=== PATIENT | male | born 1980 | race Two or more races ===

== ENCOUNTER → 2022-05-17 | Outpatient (CLI) | payer MEDICARE, MEDICAID | LOC: M PLAIMG 14:45 | PROVIDERS: ATTEND Physician Assistant | DX: L03.012 Cellulitis of left finger (principal) ==

== ENCOUNTER 2023-05-05 21:16 | Emergency (ER) | payer MEDICAID, MEDICARE ==
[~2023-05-05] VITALS: Ht 177.8 cm; Wt 100.0 kg
[2023-05-05 21:16] VITALS: BP 111/75; TEMP 98.6; O2SAT 97
[2023-05-05] MEDS ORDERED: AMOXICILLIN 500 MG CAP PO ONE (23:35)
[2023-05-05] MEDS ORDERED: IBUPROFEN 600MG TAB PO ONE (23:35)
[2023-05-05] MEDS ORDERED: UNRESOLVED CLARIFICATION ENTRY XX STA (23:38)
[2023-05-05] MEDS ORDERED: IBUP-1022 PO (23:46)
[2023-05-05] MEDS ORDERED: AMOX500C PO (23:46)
== END 2023-05-05 23:49 | disposition home or self-care (01) ==
LOC: M ED 21:16
DX: K12.2 Cellulitis and abscess of mouth (principal); Z79.2 Long term (current) use of antibiotics; Z79.1 Long term (current) use of non-steroidal anti-inflammatories (NSAID)

== ENCOUNTER 2024-08-28 13:59 | Emergency (ER) | payer MEDICAID, MEDICARE, OTHER ==
[~2024-08-28] VITALS: Ht 175.3 cm; Wt 100.0 kg
[~2024-08-28 13:59] MED LIST: AMOX500C PO; IBUP-1022 PO
[2024-08-28 15:06] LABS: HEMATOCRIT 44.6 % (42.0-52.0); HEMOGLOBIN 15.8 g/dl (13.5-17.5); MEAN CORPUSCULAR HEMOGLOBIN 27.7 pg (27.0-33.0); MEAN CORPUSCULAR HGB CONC 35.4 g/dl (32.0-36.5); MEAN CORPUSCULAR VOLUME 78.1 fl (80.0-96.0); PLATELET COUNT, AUTOMATED 198 10^3/uL (150-450); RED BLOOD COUNT 5.71 10^6/uL (4.30-6.10); WHITE BLOOD COUNT 12.2 10^3/uL (4.0-10.0)
[2024-08-28] MEDS ORDERED: ISOVUE-370 76% 100ML VIAL As Ordered ONE (15:41)
[2024-08-28 16:50] VITALS: BP 138/98
[2024-08-28] MEDS ORDERED: IBUP-1022 PO (17:03)
[2024-08-28 17:14] VITALS: O2SAT 97
[2024-08-28 17:25] VITALS: TEMP 98
== END 2024-08-28 17:26 | disposition home or self-care (01) ==
LOC: M ED 13:59
DX: S50.12XA Contusion of left forearm, initial encounter (principal); R91.1 Solitary pulmonary nodule; D18.03 Hemangioma of intra-abdominal structures; V49.50XA Passenger injured in collision with unspecified motor vehicles in traffic accident, initial encounter; M51.369 Other intervertebral disc degeneration, lumbar region without mention of lumbar back pain or lower extremity pain; M50.321 Other cervical disc degeneration at C4-C5 level; M50.322 Other cervical disc degeneration at C5-C6 level; F17.200 Nicotine dependence, unspecified, uncomplicated; Y92.410 Unspecified street and highway as the place of occurrence of the external cause; Y93.89 Activity, other specified; Y99.9 Unspecified external cause status; Z79.2 Long term (current) use of antibiotics; Z79.1 Long term (current) use of non-steroidal anti-inflammatories (NSAID)
CPT/HCPCS: 71260; 72125; 72131; 73090; 73130; 73564; 80047; 85027; 93005; 99284; Q9967